=== PATIENT | female | born 1975 | race Caucasian/White ===

== ENCOUNTER 2017-03-02 09:08 | Emergency (ER) | payer SELFPAY ==
[~2017-03-02] VITALS: Ht 167.6 cm; Wt 60.0 kg
[~2017-03-02 09:08] MED LIST: AUGM875T PO; BUPR300T PO; BUSP10 PO; CLIN150 PO; FLOR250C PO; GABA400C5 PO; IBUP800 PO; LOVA10TA PO; METF500 PO; Z.0.NO CURRENT MEDS
[2017-03-02 09:10] VITALS: BP 191/106; PULSE 110; RESP 20; TEMP 98.8; O2SAT 98
[2017-03-02 09:43] VITALS: BP 153/93; PULSE 88
[2017-03-02] MEDS ORDERED: CEPH-460 PO (09:46)
[2017-03-02] MEDS ORDERED: NYST15T TOPICAL (09:46)
--- NOTE | 2017-03-02 09:48 | PD ---
HPI Chief Complaint: Skin Problem Time Seen by Provider: 09:43 Travel History International Travel<30 days: No Contact w/Intl Traveler<30days: No Traveled to known affect area: No History of Present Illness HPI 42-year-old female presents to the emergency Department with complaint of a rash to her right foot that was itchy and has become painful yesterday and today. Denies paresthesias, loss of sensation, decreased range of motion, motor strength to the affected extremity. Denies new exposure to soaps, lotions , detergents, perfumes, medications, foods. Denies fever, vomiting. Has tried [id number] antibiotic ointment with no relief of symptoms. Has no other medical complaints. Allergies to Bactrim, sulfa, Phenergan. No other modifying factors or associated signs and symptoms. PFSH Past Medical History Arthritis: No Asthma: No Autoimmune Disease: No Blood Disorders: No Anxiety: Yes Depression: Yes Cancer: No Cardiovascular Problems: No Diabetes: Yes Diminished Hearing: No GERD: Yes Genitourinary: No Hypertension: No Immune Disorder: No Musculoskeletal: Yes (CHRONIC L HIP PAIN R/T "GROWTH") Neurologic: No Psychiatric: Yes Reproductive: No Respiratory: No Immunizations Current: Yes ?: Not Menopausal: No : 5 Para: 2 Miscarriage: 0 : 3 Ovarian Cysts: Yes (SMALL CYST REMOVED IN JANUARY 2007) Dilation and Curettage (D&C): Yes (WITH THE ABORTIONS) Past Surgical History Abdominal Surgery: Yes Section: Yes (WITH BOTH GIRLS) Other Surgery: Yes (C SECTION) Social History Alcohol Use: Yes (SVERAL TIMES A WEEK) Tobacco Use: Yes (09/26 PPD) Substance Use: Yes (MARIJUANA COUPLE TIMES A WEEK) Allergies-Medications (Allergen,Severity, Reaction): Coded Allergies: Chocolate (Verified Allergy, Severe, HIVES AND FEVER, 03/02/17) Phenergan (Verified Allergy, Severe, HIVES, ANXIETY, 03/02/17) Sulfa (Verified Allergy, Severe, SEVERE HEADACHE/ SEVERE PAIN HIPS & PELVIC AREA, 03/02/17) Bactrim (Verified Adverse Reaction, Severe, SEVERE HEADACHE AND SEVERE PAIN TO HIP & PELVIC AREA, 03/02/17) Uncoded Allergies: ATIFICIAL SWEETENERS (Allergy, Severe, SEVERE HEADACHE, 09/26/09) Reported Meds & Prescriptions Reported Meds & Active Scripts Active Keflex (Cephalexin) 500 Mg Cap 500 Mg PO Q8H 10 Days Nystatin Topical (Nystatin) 100,000 unit/gm Cream 1 Applic TOPICAL TID Florastor (Saccharomyces Boulardii) 250 Mg Cap 250 Mg PO TIDAC 10 Days Motrin 800 Mg Tab (Ibuprofen) 800 Mg Tab 800 Mg PO Q8H PRN 10 Days Augmentin 875 mg Tab (Amoxicillin & Pot Clavulanate 875 mg Tab) 875 Mg Tab 1 Tab PO BID 10 Days Cleocin (Clindamycin HCl) 150 Mg Cap 2 Tab PO Q8HR 10 Days Reported Bupropion Hcl Xl (Bupropion HCl) 300 Mg Tab 150 Mg PO BID Buspar 10 mg Tab (Buspirone HCl) 10 Mg Tab 10 Mg PO DAILY Gabapentin 400 Mg Cap 400 Mg PO HS Lovastatin 10 Mg Tab 10 Mg PO DAILY Glucophage 500 mg (Metformin HCl) 500 Mg Tab 500 Mg PO BIDPC No Current Meds (Miscellaneous Medication) Misc Review of Systems Except as stated in HPI: all other systems reviewed are Neg Physical Exam Narrative GENERAL: Well-nourished, well-developed female patient, in no acute distress SKIN: Warm and dry. Erythemic, dry rash noted in between the toes of the right feet; some areas are scabbed. There is an area where 2 small pustules are noted. Right lower extremity supple and non-tense with 2+ pedal pulses and sensory intact without erythema or edema. HEAD: Atraumatic. Normocephalic. EYES: Pupils equal and round. No scleral icterus. No injection or drainage. ENT: Mucosa pink and moist. Airway patent. NECK: Trachea midline. CARDIOVASCULAR: Regular rate. RESPIRATORY: No accessory muscle use. GASTROINTESTINAL: Flat. MUSCULOSKELETAL: No obvious deformities. No clubbing. No cyanosis. No edema. NEUROLOGICAL: Awake and alert. Oriented 3. No obvious cranial nerve deficits. Motor grossly within normal limits. Normal speech. PSYCHIATRIC: Appropriate mood and affect; insight and judgment normal. Data Data Last Documented VS Vital Signs Date Time Temp Pulse Resp B/P Pulse Ox O2 Delivery O2 Flow Rate FiO2 03/02/17 09:43 88 153/93 03/02/17 09:10 98.8 20 98 Room Air MDM Medical Decision Making Medical Screen Exam Complete: Yes Emergency Medical Condition: Yes Medical Record Reviewed: Yes Differential Diagnosis Tinea pedis, cellulitis, skin infection Narrative Course 42-year-old female physical exam consistent with tinea pedis of the right foot. There is an area with 2 small pustules noted, otherwise there are no signs of infection. Patient is requesting antibiotics. Keflex, nystatin cream prescribed for home. Instructed patient to follow up with podiatry. Patient verbalizes understanding and agreement with treatment plan. Patient is medically cleared and stable for discharge. Discussed reasons to return to the emergency department. Instructed patient to follow up with primary care provider. Patient agrees with treatment plan. The patients vital signs are stable and the patient is stable for outpatient follow-up and treatment. Patient discharged home, stable and in no acute distress. 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 Patient Instructions: General Instructions, Tinea Pedis (ED) Additional Instructions: Antifungal cream and/or athlete's foot spray as directed and as needed for skin infection Keep area clean and dry Keep feet open to air and dry Clean in between toes and dry feet after bathing Ibuprofen or Tylenol instructed nothing for pain and inflammation Follow-up with podiatry Follow-up with primary care provider Return to the emergency department immediately with worsening of symptoms Med/Other Pt SpecificInfo: Prescription(s) given Scripts Cephalexin (Keflex)500 Mg [id number] Mg PO Q8H 10 Days Ref 0 Prov:Tyra Palacios 03/02/17 Nystatin Topical 100,000 unit/gm Cream1 Applic TOPICAL TID #30 GM Ref 1 Prov:Tyra Palacios 03/02/17 Disposition: 01 DISCHARGE HOME Condition: Stable Tyra Palacios Mar 02, 2017 09:48
== END 2017-03-02 10:06 | disposition home or self-care (01) ==
LOC: NEPK 09:08
DX: B35.3 Tinea pedis (principal)
CPT/HCPCS: 99283